=== PATIENT | female | born 1935 | race Hispanic/Latino ===

== ENCOUNTER 2017-10-01 18:53 | Emergency (ER) | payer MEDICARE ==
[2017-10-01 18:53] VITALS: BMI 41.5
[2017-10-01 19:05] VITALS: TEMP 97.9
[2017-10-01 21:23] VITALS: BP 164/73; PULSE 89; RESP 17; O2SAT 99
--- NOTE | 2017-10-01 22:02 | CT ---
EXAM: CT Head Without Intravenous Contrast EXAM DATE/TIME: 10/01/2017 7:59 PM CLINICAL HISTORY: The patient age is 82 years old and is female; Signs and symptoms; Other: Headache and left tinnitus; Additional info: Left tinnitus; Headache Facility exam id and description: Ct heads head w/o contrast TECHNIQUE: Axial computed tomography images of the head/brain without intravenous contrast. All CT scans at this facility use one or more dose reduction techniques, viz.: automated exposure control; ma/kV adjustment per patient size (including targeted exams where dose is matched to indication; i.e. head); or iterative reconstruction technique. Coronal and sagittal reformatted images were created and reviewed. COMPARISON: No relevant prior studies available. FINDINGS: Brain: Motion artifact limits this study. There are bands of asymmetric increased density superior to the right tentorium, which is likely contributed by artifact. Hemorrhage is difficult to exclude in this region. There are scattered foci of hypodensity within the cerebral white matter, likely representing small vessel ischemic disease in a patient this age. The acuity of the white matter disease is indeterminate. The white-mcneil differentiation is preserved demonstrating no definitive acute territorial type infarct. There is a cavum septum pellucidum variant. Midline shift: There is no midline shift. Ventricles: There is mild prominence of the ventricles and sulci, compatible with atrophy. Bones/joints: The calvarium demonstrates no evidence for a depressed fracture. Soft tissues: No acute abnormality. Vasculature: There is atherosclerotic calcification of the intracranial internal carotid arteries and distal vertebral arteries. Sinuses: Unremarkable as visualized. No acute sinusitis. Mastoid air cells: The right mastoid air cells are hypoplastic. There is bone loss involving the left mastoid region, suggestive of mastoidectomy. IMPRESSION: 1. There are bands of asymmetric increased density superior to the right tentorium, which is likely contributed by artifact. Hemorrhage is difficult to exclude in this region. Repeat CT images are recommended. 2. No definitive acute territorial type infarct. 3. There are scattered foci of hypodensity within the cerebral white matter, likely representing small vessel ischemic disease in a patient this age. 4. Mild atrophy. 5. There is bone loss involving the left mastoid region, suggestive of mastoidectomy.
--- NOTE | 2017-10-01 22:30 | ED PDOC ---
Arrival/HPI - General Chief Complaint: ENT Problem Time Seen by Provider: 10/01/17 19:10 Historian: Patient, Family - History of Present Illness Narrative History of Present Illness (Text): 10/01/17 22:27 82 yo F with PMH of hypertension, hyperlipidemia, and diet-controlled diabetes, as well as left sided hearing loss s/p tympanoplasty and mastoidectomy, presents complaining of left sided tinnitus and headache. Patient had left sided pulsing noise starting last night, which was not heard by others around her. Patient checked her blood pressure at home and it was "very high" in the 170's systolic. She had an associated headache. She denies chest pain, shortness of breath, focal weakness, focal numbness, facial droop, slurred speech, confusion, loss of consciousness. She has had tinnitus in her left ear in the past, but this was significantly more intense than usual. 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 - Renal Hx Renal Disorder: No - Endocrine/Metabolic Hx Endocrine Disorders: No - Hematological/Oncological Hx Blood Disorders: No - Integumentary Hx Dermatological Disorder: No - Musculoskeletal/Rheumatological Hx Musculoskeletal Disorders: Yes (NEUROPATHY) - Gastrointestinal Hx Gastrointestinal Disorders: Yes Hx Gastroesophageal Reflux: Yes - Genitourinary/Gynecological Hx Genitourinary Disorders: No - Psychiatric Hx Psychophysiologic Disorder: Yes Hx Depression: Yes Hx Substance Use: No - Surgical History Hx Orthopedic Surgery: Yes (back x2) Other/Comment: L EAR - Anesthesia Hx Anesthesia Reactions: No Hx Malignant Hyperthermia: No - Suicidal Assessment Feels Threatened In Home Enviroment: No Family/Social History - Physician Review Nursing Documentation Reviewed: Yes Family/Social History: Unknown Family HX Smoking Status: Never Smoked Hx Alcohol Use: No Hx Substance Use: No Hx Substance Use Treatment: No Allergies/Home Meds Allergies/Adverse Reactions: Allergies No Known Allergies Allergy (Verified 10/01/17 18:55) Home Medications: Home Meds Medication Instructions Recorded Confirmed DULoxetine [Cymbalta] 60 mg PO DAILY 03/09/13 10/01/17 Furosemide [Furosemide] 20 mg PO DAILY 03/09/13 10/01/17 Gabapentin [Gabapentin] 100 mg PO TID 03/09/13 10/01/17 Tramadol Hydrochloride [Tramadol] 50 mg PO QID 03/09/13 10/01/17 Meloxicam 15 mg PO DAILY 10/01/17 10/01/17 Valsartan [Diovan] 160 mg PO DAILY 10/01/17 10/01/17 amLODIPine [Norvasc] 5 mg PO DAILY 10/01/17 10/01/17 Review of Systems - Review of Systems Constitutional: Normal Eyes: Normal ENT: Tinnitus. absent: Hearing Changes Respiratory: Normal Cardiovascular: Normal Gastrointestinal: Normal Genitourinary Female: Normal Musculoskeletal: Normal Skin: Normal Neurological: Headache Endocrine: Normal Hemo/Lymphatic: Normal Psychiatric: Normal Physical Exam Vital Signs Temp Pulse Resp BP Pulse Ox 10/01/17 21:22 89 17 164/73 H 99 10/01/17 20:29 75 166/79 H 10/01/17 20:23 166/79 H 10/01/17 19:03 97.9 F 97 H 16 146/76 96 Temperature: Afebrile Blood Pressure: Hypertensive Pulse: Regular Respiratory Rate: Normal Appearance: Positive for: Non-Toxic, Comfortable Pain Distress: Mild Mental Status: Positive for: Alert and Oriented X 3 - Systems Exam Head: Present: Atraumatic, Normocephalic Pupils: Present: PERRL Extroacular Muscles: Present: EOMI Conjunctiva: Present: Normal Ears: Present: Other (Right EAC and TM normal. Left EAC post-surgical, TM severely retracted) Mouth: Present: Moist Mucous Membranes Pharnyx: Present: Normal Neck: Present: Normal Range of Motion Respiratory/Chest: Present: Clear to Auscultation, Good Air Exchange. No: Respiratory Distress, Accessory Muscle Use Cardiovascular: Present: Regular Rate and Rhythm, Normal S1, S2 Abdomen: Present: Normal Bowel Sounds. No: Tenderness, Distention Upper Extremity: Present: Normal Inspection. No: Cyanosis, Edema Lower Extremity: Present: Normal Inspection. No: Edema, CALF TENDERNESS Neurological: Present: GCS=15, CN II-XII Intact, Speech Normal, Motor Func Grossly Intact, Normal Sensory Function, Normal Cerebellar Funct, Gait Normal, Normal 2Pt Descrimination Skin: Present: Warm, Dry, Normal Color. No: Rashes Psychiatric: Present: Alert, Oriented x 3, Normal Insight, Normal Concentration Medical Decision Making ED Course and Treatment: 10/01/17 22:32 Impression: Left tinnitus and hearing loss; headache Differential Diagnosis included but are not limited to: CVA, hypertensive urgency/emergency, pulsatile tinnitus 2/2 hypertension Plan: -- Clonidine for BP -- CT head to r/o CVA -- Reassess and disposition Prior Visits: Notes and results from previous visits were reviewed. Patient was last seen in the emergency department on 03/07/14 for cough Progress Notes: -- Patient reports improvement in headache and tinnitus after clonidine -- CT head shows no territorial type infarct; right supratentorial artifact -- Patient instructed to continue her BP meds, and follow up with her PMD in the next 3-5 days for titration of antihypertensives; return to the ER for new or worsening concerns 10/01/17 22:34 - RAD Interpretation Radiology Orders: 10/01/17 19:59 HEAD W/O CONTRAST [CT] Stat - Medication Orders Current Medication Orders: Discontinued Medications Clonidine HCl (Catapres) 0.2 mg PO STAT STA Stop: 10/01/17 20:03 Last Admin: 10/01/17 20:29 Dose: 0.2 mg MAR Pulse and Blood Pressure Document 10/01/17 20:29 SF (Rec: 10/01/17 20:30 [facility] Pulse Pulse Rate (60-90) 75 Blood Pressure Blood Pressure (100/60-150/90) 166/79 Disposition/Present on Arrival - Present on Arrival Any Indicators Present on Arrival: No History of DVT/PE: No History of Uncontrolled Diabetes: No Urinary Catheter: No History of Decub. Ulcer: No History Surgical Site Infection Following: None - Disposition Have Diagnosis and Disposition been Completed?: Yes Diagnosis: Tinnitus of left ear, Uncontrolled hypertension Disposition: HOME/ ROUTINE Disposition Time: 22:38 Patient Plan: Discharge Patient Problems: Current Active Problems Problem Status Onset Tinnitus of left ear Acute Uncontrolled hypertension Acute Condition: FAIR Discharge Instructions (ExitCare): High Blood Pressure (DC), Tinnitus (Ringing in the Ears) Additional Instructions: -- Follow up with your primary care doctor within 3-5 days -- Continue your blood pressure medications as previously prescribed -- Return to the ER for any new or worsening concerns Referrals: Luciana Veronica MD [Primary Care Provider] - Follow up with primary Forms: [email or web address] ([place])
--- NOTE | 2017-10-02 14:41 | CARD ---
APPROVED REPORT EKG Measurement Heart [id number] <Conclusion> Normal sinus rhythm Normal ECG
== END 2017-10-01 22:27 | disposition home or self-care (01) ==
LOC: ED 18:53
DX: H93.12 Tinnitus, left ear (principal); I10 Essential (primary) hypertension; E78.5 Hyperlipidemia, unspecified; E11.9 Type 2 diabetes mellitus without complications